=== PATIENT | male | born 1965 | race Caucasian/White ===

== ENCOUNTER 2022-07-10 13:39 | Outpatient (CLI) | payer OTHER | END 2022-07-10 13:40 | disposition home or self-care (01) | LOC: MRI 13:39 | PROVIDERS: ATTEND Neurological Surgery | DX: M54.2 Cervicalgia (principal); M54.16 Radiculopathy, lumbar region; M47.812 Spondylosis without myelopathy or radiculopathy, cervical region; M47.813 Spondylosis without myelopathy or radiculopathy, cervicothoracic region | CPT/HCPCS: 72050; 72141 ==